=== PATIENT | female | born 1990 | race Caucasian/White ===

== ENCOUNTER 2018-09-17 15:08 | Observation (INO) ==
[2018-09-17] MEDS ORDERED: NS 1000 ML 1,000 ML ONE (15:15)
[2018-09-17] MEDS ORDERED: ZOFRAN INJ 4 MG VIAL ONE (15:15)
--- NOTE | 2018-09-17 15:21 | ED.ABDFE ---
HPI Time Seen Time Seen by Provider: 09/17/18 15:13 PCP Primary Care Physician: VERONICA MILNER Complaint Doctors Chief Complaint Comments: A 27 y/o female with onset of Rt. flank pain about 1 hr. DIRECTOR OF LEADERSHIP DEVELOPMENT. She describes this as a sharp and constant pain. She has associated nausea + vomiting. She denies dysuria or hematuria. She had a pre- visit with OB provider earlier today and everything was okay at the time. She is 20 weeks EGA. Chief Complaint:: PT C/O ABOUT AN HOUR AGO SHE WAS IN THE KITCHEN AND PT C/O HAVING SHARP PAINS TO HER RIGHT SIDE AREA, PT IS 20 WEEK , PT DENIES ANY BLEEDING OR DISCHARGE ,BR Source History Provided: Patient Mode of arrival Mode of Arrival: Ambulatory Timing Onset of Chief Complaint: 09/17/18 PMH PMH Past Medical History: No Past Surgical History: Yes Surgical History: Ortho Surgery and Tonsillectomy Family History History of Family Medical Conditions: No Social History Does patient currently use any type of tobacco product: No Have you used tobacco products in the last 12 months: No Type of Tobacco Use: None Does any household member use tobacco: No Alcohol Use: None Do you use any recreational Drugs:: No Lives With: Family Lives Where: Home infectious screening In the last 2 months have you had wt loss of >10#?: NO Have you had fever, night sweats or hemotysis?: No Have you traveled outside the country in the last 6 months?: No Isolation: Standard ROS Review of Systems Constitutional: No Symptoms Reported Eyes: No Symptoms Reported ENTM: No Symptoms Reported Respiratoy: No Symptoms Reported Cardiovascular: No Symptoms Reported Gastrointestinal/Abdominal: Abdominal Pain (Rt. flank), Nausea and Vomiting Genitourinary: No Symptoms Reported Neurological: No Symptoms Reported Musculoskeletal: No Symptoms Reported Integumentary: No Symptoms Reported Hematologic/Lymphatic: No Symptoms Reported Endocrine: No Symptoms Reported Psychiatric: No Symptoms Reported PE Vital Signs Vitals: Temperature 97.0 F Pulse Rate 57 Respiratory Rate 20 Blood Pressure 129/77 O2 Sat by Pulse Oximetry 97 General Limitations: No Limitations General Appearance: Alert and In Distress (pain related) Head Head Exam: Normal Inspection, Atraumatic and Normocephalic Eyes Eye exam: Normal Appearance and EOMI ENT ENT Exam: Normal Oropharynx and Mucous Membranes Moist Neck Neck Exam: Normal Inspection, Full ROM and Trachea Midline Chest Chest Inspection: Normal Inspection and Symmetric Chest Wall Rise Respiratory Respiratory Exam: Normal Lung Sounds Bilat Cardiovascular Cardiovascular Exam: Regular Rate, Normal Rhythm, +S1 and +S2 Abdominal Exam Abdominal Exam: Normal Inspection, Normal Bowel Sounds and Soft Abdominal Tenderness: negative RUQ, RLQ, LUQ, LLQ, Epigastrium, Suprapubic, Diffuse, Mild, Moderate and Severe Rectal Rectal Exam: Deferred Back Back Exam: Normal Inspection; negative Full ROM, Tenderness, (R) CVA Tenderness, (L) CVA Tenderness, Muscle Spasm, Paraspinal Tenderness, Vertebral Tenderness, Rashes, (R) Sciatic Notch Tenderness, (L) Sciatic Notch Tendern, (R) Straight Leg Raise and (L) Straight Leg Raise Extremeties Extremities Exam: Normal Inspection External Exam: Female: Deferred Neurologic Neurological Exam: Alert and Oriented X3 Psychiatric Psychiatric Exam: Normal Affect and Normal Mood Skin Skin Exam: Warm, Dry and Normal Color ROR Labs Reviewed Result Diagrams: 09/17/18 15:21 09/17/18 15:21 Laboratory: WBC 17.4 X10^3/uL (3.6-10.0) H 09/17/18 15:21 RBC 3.97 X10^6/uL (3.5-5.4) 09/17/18 15:21 Hgb 12.7 g/dL (12.0-16.0) 09/17/18 15:21 Hct 36.2 % (36.0-47.0) 09/17/18 15:21 MCV 91.2 fL (80.0-100.0) 09/17/18 15:21 MCH 31.9 pg (27.0-34.0) 09/17/18 15:21 MCHC 35.0 g/dL (33.0-35.0) 09/17/18 15:21 RDW 13.9 % (11.6-16.5) 09/17/18 15:21 Plt Count 306 X10^3/uL (150.0-450.0) 09/17/18 15:21 MPV 8.6 fL (7.4-11.0) 09/17/18 15:21 Neut % (Auto) 79.6 % (42.0-75.0) H 09/17/18 15:21 Lymph % (Auto) 13.0 % (21.0-51.0) L 09/17/18 15:21 [place] % (Auto) 5.7 % (0.0-13.0) 09/17/18 15:21 Eos % (Auto) 1.1 % (0.9-2.9) 09/17/18 15:21 Baso % (Auto) 0.6 % (0.2-1.0) 09/17/18 15:21 Neut # (Auto) 13.9 x10^3/uL (2.2-4.8) H 09/17/18 15:21 Lymph # (Auto) 2.3 X10^3/uL (1.3-2.9) 09/17/18 15:21 [place] # (Auto) 1.0 x10^3/uL (0.3-0.8) H 09/17/18 15:21 Eos # (Auto) 0.2 x10^3/uL (0.0-0.2) 09/17/18 15:21 Baso # (Auto) 0.1 X10^3/uL (0.0-0.1) 09/17/18 15:21 Absolute Nucleated RBC 0.0 /100WBC 09/17/18 15:21 Sodium 138 mmol/L (136-145) 09/17/18 15:21 Corrected Sodium TNP 09/17/18 15:21 Potassium 4.1 mmol/L (3.5-5.1) 09/17/18 15:21 Chloride 103 mmol/L (98-107) 09/17/18 15:21 Carbon Dioxide 22.2 mmol/L (21-32) 09/17/18 15:21 BUN 14 mg/dL (7-18) 09/17/18 15:21 Creatinine 0.84 mg/dL (0.55-1.02) 09/17/18 15:21 Est GFR (MDRD) Af Amer > 60 (>60) 09/17/18 15:21 Est GFR (MDRD) Non-Af > 60 (>60) 09/17/18 15:21 Glucose 88 mg/dL (65-99) 09/17/18 15:21 Calcium 9.0 mg/dL (8.5-10.1) 09/17/18 15:21 Corrected Calcium 9.6 mg/dL (8.5-10.1) 09/17/18 15:21 Total Bilirubin 0.20 mg/dL (0.2-1.0) 09/17/18 15:21 AST 22 Units/L (15-37) 09/17/18 15:21 ALT 23 Units/L (12-78) 09/17/18 15:21 Alkaline Phosphatase 70 Units/L (46-116) 09/17/18 15:21 Total Protein 7.4 g/dL (6.4-8.2) 09/17/18 15:21 Albumin 3.3 g/dL (3.4-5.0) L 09/17/18 15:21 Globulin 4.1 g/dL (2.5-4.5) 09/17/18 15:21 Albumin/Globulin Ratio 0.8 Ratio (1.1-2.1) L 09/17/18 15:21 Diagnosis Discharge Problem: Cholelithiasis affecting in second trimester, antepartum, Intrauterine Leukocytosis (leucocytosis) Qualifiers: Leukocytosis type: unspecified Qualified Code(s): D72.829 - Elevated white blood cell count, unspecified
[2018-09-17] MEDS ORDERED: NUBAIN INJ 10 ONE (15:24)
[2018-09-17] MEDS ORDERED: NS 1000 ML 1,000 ML IV ONE (15:30)
[2018-09-17] MEDS ORDERED: NUBAIN INJ 10 IVP ONE (15:30)
[2018-09-17 15:45] LABS: BASOPHILS # (AUTO) 0.1 X10^3/uL (0.0-0.1); BASOPHILS % (AUTO) 0.6 % (0.2-1.0); EOSINOPHILS # (AUTO) 0.2 x10^3/uL (0.0-0.2); EOSINOPHILS % (AUTO) 1.1 % (0.9-2.9); HEMATOCRIT 36.2 % (36.0-47.0); HEMOGLOBIN 12.7 g/dL (12.0-16.0); LYMPHOCYTES # (AUTO) 2.3 X10^3/uL (1.3-2.9); MEAN CORPUSCULAR HEMOGLOBIN 31.9 pg (27.0-34.0); MEAN CORPUSCULAR VOLUME 91.2 fL (80.0-100.0); MEAN PLATELET VOLUME 8.6 fL (7.4-11.0); MONOCYTES % (AUTO) 5.7 % (0.0-13.0); NEUTROPHILS # (AUTO) 13.9 x10^3/uL (2.2-4.8); NEUTROPHILS % (AUTO) 79.6 % (42.0-75.0); PLATELET COUNT 306 X10^3/uL (150.0-450.0); RED BLOOD COUNT 3.97 X10^6/uL (3.5-5.4); RED CELL DISTRIBUTION WIDTH 13.9 % (11.6-16.5); WHITE BLOOD COUNT 17.4 X10^3/uL (3.6-10.0)
[2018-09-17 15:55] LABS: ALANINE AMINOTRANSFERASE 23 Units/L (12-78); ALBUMIN 3.3 g/dL (3.4-5.0); ALKALINE PHOSPHATASE 70 Units/L (46-116); ASPARTATE AMINO TRANSFERASE 22 Units/L (15-37); BLOOD UREA NITROGEN 14 mg/dL (7-18); CARBON DIOXIDE 22.2 mmol/L (21-32); CHLORIDE 103 mmol/L (98-107); COR CA(FOR HYPOALB) 9.6 mg/dL (8.5-10.1); CREATININE 0.84 mg/dL (0.55-1.02); SODIUM 138 mmol/L (136-145); TOTAL PROTEIN 7.4 g/dL (6.4-8.2); eGFR NON BLACK RACES > 60 (>60)
[2018-09-17] MEDS ORDERED: DEMEROL INJ ONE (16:20)
[2018-09-17] MEDS ORDERED: PHENERGAN INJ 25 MG IM ONE ×2 (16:20→16:28)
[2018-09-17] MEDS ORDERED: DEMEROL INJ IVP ONE (16:26)
[2018-09-17] MEDS ORDERED: ANCEF VIAL 1 GRAM IM ONE (17:27)
[2018-09-17] MEDS ORDERED: ANCEF VIAL 1 GRAM IVP ONE (17:43)
[2018-09-17] MEDS ORDERED: ANCEF VIAL 1 GRAM ONE (17:46)
[2018-09-17] MEDS ORDERED: DEMEROL INJ IVP PRN (17:47)
[2018-09-17] MEDS ORDERED: PHENERGAN INJ 25 MG IM PRN (18:38)
[2018-09-17 18:59] LABS: BILIRUBIN,URINE NEGATIVE (NEGATIVE); BLOOD/HEMOGLOBIN,URINE 2+ (NEGATIVE); GLUCOSE, URINE NEGATIVE (NEGATIVE); KETONES,URINE 4+ (NEGATIVE); LEUKOCYTE ESTERASE ,URINE 1+ (NEGATIVE); NITRITES,URINE NEGATIVE (NEGATIVE); PROTEIN,URINE 2+ (NEGATIVE); UROBILINOGEN,URINE NORMAL (NORMAL)
[2018-09-17 19:07] LABS: APPEARANCE,URINE SLIGHTLY HAZY (CLEAR); COLOR,URINE YELLOW (YELLOW)
[2018-09-17 19:08] LABS: BACTERIA,URINE TRACE /HPF (NEGATIVE); MUCUS,URINE MODERATE /HPF (NEGATIVE); SQUAMOUS EPITHELIAL CELL,UR MANY /HPF (NEGATIVE)
--- NOTE | 2018-09-17 19:11 | US ---
History: Pain Exam: Complete abdominal ultrasound Comparison: None Technique: Multiple grayscale and color flow Doppler images of the abdomen was obtained. Findings: The liver is normal size and echogenicity. There is hepatopetal flow in the portal vein and visualized hepatic veins and IVC are unremarkable. The gallbladder is normal size. There is a large mobile echogenic focus in the gallbladder which is shadowing posteriorly . There is no wall thickening or pericholecystic fluid . There was pain upon compression of the gallbladder . The common duct measures 2 mm. The right kidney measures 10 cm in length with mild hydronephrosis . The left kidney measures 9 cm in length and is normal in echogenicity. The spleen measures 11 cm in length and is normal in echogenicity. The visualized aorta and pancreas unremarkable. There is a gravid uterus with a 19 week 5 day and cardiac activity documented 123 beats per minute . The placenta is good position posteriorly. IMPRESSION: Single large gallstone with no wall thickening or pericholecystic fluid. There was pain upon compression of the gallbladder which is of uncertain clinical significance. Recommend follow-up. Normal liver, common bile duct, and pancreas. Mild hydronephrosis right kidney. Incidental single viable intrauterine with an estimated gestational age of 19 weeks 5 days. Reported By:
--- NOTE | 2018-09-17 19:13 | US ---
History: Nausea vomiting Exam: Limited OB ultrasound Comparison: None Technique: Multiple grayscale and color flow Doppler images of the pelvis were obtained. Findings: There is a single intrauterine in the breech presentation. The estimated gestational age of 20 weeks 3 days. Cardiac activity was documented at 171 beats per minute. The placenta is seen posteriorly located and is normal in echogenicity . visualized amniotic fluid volume is grossly unremarkable . The visualized anatomy is grossly unremarkable. IMPRESSION: Single viable intrauterine in the breech presentation with an estimated gestational age of 20 weeks 3 days. Reported By:
[2018-09-17] MEDS: NS 1000 ML 1,000 ML IV SCH (19:24)
[2018-09-17 19:46] VITALS: BMI 28.9
[2018-09-17] MEDS: ANCEF VIAL 1 GRAM IVP SCH (21:08)
[2018-09-17] MEDS: ZANTAC INJ 50 MG in NS 50 ML IV 50 ML IV SCH (22:17)
[2018-09-18] MEDS: ANCEF VIAL 1 GRAM IVP SCH ×2 (05:22→14:09)
[2018-09-18] MEDS: NS 1000 ML 1,000 ML IV SCH ×2 (05:22→12:49)
[2018-09-18] MEDS: ZANTAC INJ 50 MG in NS 50 ML IV 50 ML IV SCH ×2 (05:22→14:10)
[2018-09-18 06:30] LABS: BASOPHILS % (AUTO) 0.3 % (0.2-1.0); EOSINOPHILS % (AUTO) 0.3 % (0.9-2.9); HEMATOCRIT 30.1 % (36.0-47.0); HEMOGLOBIN 10.2 g/dL (12.0-16.0); LYMPHOCYTES # (AUTO) 1.6 X10^3/uL (1.3-2.9); LYMPHOCYTES % (AUTO) 12.3 % (21.0-51.0); MEAN CORPUSCULAR HEMOGLOBIN 31.4 pg (27.0-34.0); MEAN CORPUSCULAR HGB CONC 33.9 g/dL (33.0-35.0); MEAN CORPUSCULAR VOLUME 92.7 fL (80.0-100.0); MEAN PLATELET VOLUME 8.5 fL (7.4-11.0); MONOCYTES # (AUTO) 0.8 x10^3/uL (0.3-0.8); NEUTROPHILS # (AUTO) 10.9 x10^3/uL (2.2-4.8); NEUTROPHILS % (AUTO) 81.1 % (42.0-75.0); PLATELET COUNT 231 X10^3/uL (150.0-450.0); RED BLOOD COUNT 3.24 X10^6/uL (3.5-5.4); RED CELL DISTRIBUTION WIDTH 13.8 % (11.6-16.5); WHITE BLOOD COUNT 13.4 X10^3/uL (3.6-10.0)
[2018-09-18 07:03] LABS: BAND NEUTROPHILS % 3 % (0-10); PLATELET MORPHOLOGY COMMENT NORMAL (NORMAL)
--- NOTE | 2018-09-18 11:12 | DR.PROGNOT ---
Hospital Progress Notes - Progress Note for Day of: Progress Note Date: 09/18/18 - Chief Complaint Chief Complaint: no abdominal pain this morning , no nausea or vomiting . WBC is 13.4 and LFT are normal . afebrile . - Past Medical Family Social History Past Med/Fam/Surg Hx: No changes since H&P Allergies: Allergies No Known Drug Allergies Allergy (Verified 09/17/18 15:14) - Review Of Systems ROS: No change since H&P - Vital Signs Vital Signs: Temperature 98.5 F Pulse Rate [Right] 76 Pulse Rate 57 Respiratory Rate 18 Blood Pressure [Right Arm] 92/53 Blood Pressure 129/77 O2 Sat by Pulse Oximetry 98 - Physical Exam Oriented: Normal Eyes: Normal Ear: Normal Nose: Normal Throat: Normal Respiratory: Normal Cardiovascular: Normal : Normal GI:Auscultation: Normal GI:Palpation: Normal GI: Tenderness: RUQ (only mild RUQ tenderness , no rebound , BS+) Speech Pattern: Clear, Appropriate - Laboratory and Diagnostics Result Diagrams: 09/18/18 06:00 09/17/18 15:21 Labs: Laboratory WBC 13.4 X10^3/uL (3.6-10.0) H 09/18/18 06:00 RBC 3.24 X10^6/uL (3.5-5.4) L 09/18/18 06:00 Hgb 10.2 g/dL (12.0-16.0) L D 09/18/18 06:00 Hct 30.1 % (36.0-47.0) L 09/18/18 06:00 MCV 92.7 fL (80.0-100.0) 09/18/18 06:00 MCH 31.4 pg (27.0-34.0) 09/18/18 06:00 MCHC 33.9 g/dL (33.0-35.0) 09/18/18 06:00 RDW 13.8 % (11.6-16.5) 09/18/18 06:00 Plt Count 231 X10^3/uL (150.0-450.0) 09/18/18 06:00 Plt Count Comment Adequate (ADEQUATE) 09/18/18 06:00 MPV 8.5 fL (7.4-11.0) 09/18/18 06:00 Neut % (Auto) 81.1 % (42.0-75.0) H 09/18/18 06:00 Lymph % (Auto) 12.3 % (21.0-51.0) L 09/18/18 06:00 [place] % (Auto) 6.0 % (0.0-13.0) 09/18/18 06:00 Eos % (Auto) 0.3 % (0.9-2.9) L 09/18/18 06:00 Baso % (Auto) 0.3 % (0.2-1.0) 09/18/18 06:00 Neut # (Auto) 10.9 x10^3/uL (2.2-4.8) H 09/18/18 06:00 Lymph # (Auto) 1.6 X10^3/uL (1.3-2.9) 09/18/18 06:00 [place] # (Auto) 0.8 x10^3/uL (0.3-0.8) 09/18/18 06:00 Eos # (Auto) 0.0 x10^3/uL (0.0-0.2) 09/18/18 06:00 Baso # (Auto) 0.0 X10^3/uL (0.0-0.1) 09/18/18 06:00 Absolute Nucleated RBC 0.0 /100WBC 09/18/18 06:00 Total Counted 100 09/18/18 06:00 Neutrophils % (Manual) 75 % (39-76) 09/18/18 06:00 Band Neutrophils % 3 % (0-10) 09/18/18 06:00 Lymphocytes % (Manual) 16 % (13-43) 09/18/18 06:00 Monocytes % (Manual) 4 % (4-9) 09/18/18 06:00 Eosinophils % (Manual) 2 % (0-6) 09/18/18 06:00 Plt Morphology Comment Normal (NORMAL) 09/18/18 06:00 RBC Morphology Normal (NORMAL) 09/18/18 06:00 Sodium 138 mmol/L (136-145) 09/17/18 15:21 Corrected Sodium TNP 09/17/18 15:21 Potassium 4.1 mmol/L (3.5-5.1) 09/17/18 15:21 Chloride 103 mmol/L (98-107) 09/17/18 15:21 Carbon Dioxide 22.2 mmol/L (21-32) 09/17/18 15:21 BUN 14 mg/dL (7-18) 09/17/18 15:21 Creatinine 0.84 mg/dL (0.55-1.02) 09/17/18 15:21 Est GFR (MDRD) Af Amer > 60 (>60) 09/17/18 15:21 Est GFR (MDRD) Non-Af > 60 (>60) 09/17/18 15:21 Glucose 88 mg/dL (65-99) 09/17/18 15:21 Calcium 9.0 mg/dL (8.5-10.1) 09/17/18 15:21 Corrected Calcium 9.6 mg/dL (8.5-10.1) 09/17/18 15:21 Total Bilirubin 0.20 mg/dL (0.2-1.0) 09/17/18 15:21 AST 22 Units/L (15-37) 09/17/18 15:21 ALT 23 Units/L (12-78) 09/17/18 15:21 Alkaline Phosphatase 70 Units/L (46-116) 09/17/18 15:21 Total Protein 7.4 g/dL (6.4-8.2) 09/17/18 15:21 Albumin 3.3 g/dL (3.4-5.0) L 09/17/18 15:21 Globulin 4.1 g/dL (2.5-4.5) 09/17/18 15:21 Albumin/Globulin Ratio 0.8 Ratio (1.1-2.1) L 09/17/18 15:21 Specimen Type Clean catch urine 09/17/18 18:53 Urine Color Yellow (YELLOW) 09/17/18 18:53 Urine Appearance Slightly hazy (CLEAR) 09/17/18 18:53 Urine pH 5.0 (5.0 - 8.0) 09/17/18 18:53 Ur Specific [place] 1.025 (1.000-1.030) 09/17/18 18:53 Urine Protein 2+ (NEGATIVE) 09/17/18 18:53 Urine Glucose (UA) Negative (NEGATIVE) 09/17/18 18:53 Urine Ketones 4+ (NEGATIVE) 09/17/18 18:53 Urine Occult Blood 2+ (NEGATIVE) 09/17/18 18:53 Urine Nitrite Negative (NEGATIVE) 09/17/18 18:53 Urine Bilirubin Negative (NEGATIVE) 09/17/18 18:53 Urine Urobilinogen Normal (NORMAL) 09/17/18 18:53 Ur Leukocyte Esterase 1+ (NEGATIVE) 09/17/18 18:53 Urine RBC 5-10 /HPF (NONE SEEN) 09/17/18 18:53 Urine WBC 0-2 /HPF (NONE SEEN) 09/17/18 18:53 Ur Squamous Epith Cells Many /HPF (NEGATIVE) 09/17/18 18:53 Urine Bacteria Trace /HPF (NEGATIVE) 09/17/18 18:53 Urine Mucus Moderate /HPF (NEGATIVE) 09/17/18 18:53 Ur Culture Indicated? No/not indicated 09/17/18 18:53 - Assessment and Plan 1: subsided biliary colic . non complicated (20 weeks ). will start low fat diet this am and recheck this pm . if still asymptomatic will D/C and follow as OP . - Problem Patient Problems: Patient Problems Cholelithiasis affecting in second trimester, antepartum (Acute) O26.612, K80.20 Leukocytosis (leucocytosis) (Acute) D72.829 Intrauterine (Acute) Z34.90
[2018-09-18 12:48] VITALS: BP 94/51
== END 2018-09-18 14:10 | disposition home or self-care (01) ==
LOC: MED/SURG 15:08 → ER 15:08 → MED/SURG 18:32
PROVIDERS: ADMIT Specialist; ATTEND Specialist
DX: Z87.442 Personal history of urinary calculi; O99.612 Diseases of the digestive system complicating pregnancy, second trimester; K80.20 Calculus of gallbladder without cholecystitis without obstruction; D72.828 Other elevated white blood cell count; N13.30 Unspecified hydronephrosis; R10.31 Right lower quadrant pain; O99.89 Other specified diseases and conditions complicating pregnancy, childbirth and the puerperium; R11.2 Nausea with vomiting, unspecified; Z3A.20 20 weeks gestation of pregnancy
CPT/HCPCS: 36415; 76700; 76815; 80053; 81001; 85025; 96365; 96367; 96372; 96374; 96375; 99284; A4222; G0378; J0690; J2175; J2300; J2405; J2550; J2780; J7030; J7050

== ENCOUNTER 2019-01-22 06:08 | Inpatient (IN) ==
[2019-01-22] MEDS ORDERED: D5LR 1L W PITOCIN 10 UNITS/L 10 UNITS/1,000 ML BAG IV ONE (06:27)
[2019-01-22] MEDS ORDERED: D5 1/2 NS 1000 ML 1,000 ML ONE (06:27)
[2019-01-22] MEDS ORDERED: PITOCIN IVP ONE (07:09)
[2019-01-22] MEDS ORDERED: PHENERGAN INJ 25 MG IM PRN ×2 (07:09→16:07)
[2019-01-22] MEDS ORDERED: REGLAN INJ 10 MG VIAL IVP PRN (07:09)
[2019-01-22] MEDS ORDERED: D5 1/2 NS 1000 ML 1,000 ML IV SCH (07:09)
[2019-01-22] MEDS ORDERED: D5LR 1L W PITOCIN 10 UNITS/L 10 UNITS/1,000 ML BAG IV PRN (07:09)
[2019-01-22] MEDS ORDERED: MORPHINE SULFATE INJ 2 MG INJ IVP PRN (07:09)
[2019-01-22] MEDS ORDERED: NUBAIN INJ 200 MG VIAL MULTIDOSE IVP PRN (07:09)
--- NOTE | 2019-01-22 07:30 | DR.OB ---
OB Quick Note - Assessment/Plan Assessment/Plan: L&D 01/22/19 at 7:00am S-No complaint. O-Afebrile,VSS YPU=545 with good LTV, +accel, no decel. CTX=none CVX=2cm/50%/-1/VTX AROM with clear fluid. IUPC and FSE placed. A-IUP at 38 6/7 weeks for induction P-Begin pitocin induction Anticipate
[2019-01-22] MEDS ORDERED: LR 1000 ML IV 1,000 ML ONE (09:12)
[2019-01-22] MEDS ORDERED: FENTANYL INJ 100 mcg ONE (09:12)
[2019-01-22] MEDS ORDERED: NAROPIN EPIDURAL 0.2% + FENTANYL 90MCG 60 ML EPI ONE (09:13)
[2019-01-22] MEDS ORDERED: PITOCIN ONE (09:13)
--- NOTE | 2019-01-22 11:44 | DR.OB ---
OB Quick Note - Assessment/Plan Assessment/Plan: L&D 01/22/19 at 11:40am Pitocin=12mu/min. S-No complaint. s/p epidural. O-Afebrile,VSS EBA=179 with good LTV, +accel, no decel. CTX=q 1 1/2 to 2 min., about 45-55mmHg CVX=3-4cm/90%/0 A-IUP at 38 6/7 weeks for induction P-Cont. pitocin induction Anticipate
[2019-01-22] MEDS ORDERED: D5 1/2 NS 1L W PITOCIN 20 UNITS/L 20 UNITS/1,000 ML BAG IV ONE (15:49)
[2019-01-22] MEDS ORDERED: XYLOCAINE 1 % (PLAIN) ONE (15:55)
[2019-01-22] MEDS ORDERED: ADACEL or BOOSTRIX TDaP VACCINE IM ONE (16:46)
[2019-01-22] MEDS ORDERED: MILK OF MAGNESIA PO PRN (16:46)
[2019-01-22] MEDS ORDERED: DERMOPLAST SPRAY TOP PRN (16:46)
[2019-01-22] MEDS ORDERED: AMBIEN PO PRN (16:46)
[2019-01-22] MEDS: D5 1/2 NS 1000 ML 1,000 ML with PITOCIN 20 UNITS IV SCH ×2 (16:50)
--- NOTE | 2019-01-22 16:55 | DR.OB ---
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 Head delivered over intact perineum. Nose and mouth bulb suctioned. Late meconium noted. Body delivered over intact perineum. Cord clamped x 2 and cut. handed to attendant. Cord sent for gases. Placenta delivered spontaneously / intact / 3 vessel cord. No CVX tears. A small second degree midline tear noted and repaired with 0-vicryl in usual fashion. Viable male infant, VTX/OA, wt=7'2" and 9/9, stable to NBN. Mother stable to RR. DMV=768kf.
[2019-01-22] MEDS: MOTRIN TAB 800 MG PO PRN (17:15)
[2019-01-22] MEDS: ZANTAC PO SCH (20:11)
[2019-01-23] MEDS: D5 1/2 NS 1000 ML 1,000 ML with PITOCIN 20 UNITS IV SCH ×2 (01:21)
[2019-01-23] MEDS: MOTRIN TAB 800 MG PO PRN ×2 (01:22→09:13)
[2019-01-23 05:21] LABS: HEMATOCRIT 27.3 % (36.0-47.0)
[2019-01-23 05:27] LABS: HEMOGLOBIN 9.4 g/dL (12.0-16.0)
[2019-01-23] MEDS ORDERED: PRENATAL PLUS PO SCH (09:00)
[2019-01-23] MEDS: ZANTAC PO SCH (09:12)
[2019-01-23 12:40] VITALS: BP 106/67
== END 2019-01-23 18:10 | disposition home or self-care (01) | DRG 807 ==
LOC: LD 06:08 → MED/SURG 16:44
PROVIDERS: ADMIT Specialist; ATTEND Specialist
DX: O99.89 Other specified diseases and conditions complicating pregnancy, childbirth and the puerperium; Z3A.38 38 weeks gestation of pregnancy; Z37.0 Single live birth; H54.8 Legal blindness, as defined in USA; O70.1 Second degree perineal laceration during delivery; Z23 Encounter for immunization
CPT/HCPCS: 36415; 59409; 85014; 85018; 88307; 90715; A4216; A4222; S0197; J2590; J3010; J7120; S5010

== ENCOUNTER 2022-03-12 10:08 | Observation (INO) ==
[2022-03-12] MEDS ORDERED: TESSALON PERLES PO PRN (11:12)
[2022-03-12] MEDS ORDERED: ZOFRAN INJ 4 MG VIAL IVP PRN (11:14)
[2022-03-12] MEDS ORDERED: ZITHROMAX INJ 500 MG VIAL IV ONE (11:27)
[2022-03-12 11:35] VITALS: BMI 34.5
[2022-03-12] MEDS: ZITHROMAX INJ 500 MG VIAL 500 MG in NS 250 ML IV 250 ML IV SCH (11:36)
[2022-03-12] MEDS: PROTONIX INJ 40 MG VIAL IVP SCH (11:36)
[2022-03-12] MEDS: SOLU-Medrol 125 MG VIAL IVP SCH ×3 (11:36→21:19)
[2022-03-12 12:02] LABS: APPEARANCE,URINE SLIGHTLY HAZY (CLEAR); BILIRUBIN,URINE NEGATIVE (NEGATIVE); BLOOD/HEMOGLOBIN,URINE 4+ (NEGATIVE); COLOR,URINE STRAW (YELLOW); GLUCOSE, URINE NEGATIVE (NEGATIVE); KETONES,URINE NEGATIVE (NEGATIVE); LEUKOCYTE ESTERASE ,URINE 1+ (NEGATIVE); NITRITES,URINE NEGATIVE (NEGATIVE); PROTEIN,URINE 2+ (NEGATIVE); UROBILINOGEN,URINE NORMAL (NORMAL)
[2022-03-12 12:11] LABS: BACTERIA,URINE TRACE /HPF (NEGATIVE); SQUAMOUS EPITHELIAL CELL,UR FEW /HPF (NEGATIVE)
[2022-03-12 12:24] LABS: BASOPHILS % (AUTO) 0.7 % (0.2-1.0); EOSINOPHILS # (AUTO) 0.1 x10^3/uL (0.0-0.2); EOSINOPHILS % (AUTO) 1.6 % (0.9-2.9); HEMATOCRIT 43.9 % (36.0-47.0); HEMOGLOBIN 15.2 g/dL (12.0-16.0); LYMPHOCYTES # (AUTO) 1.1 X10^3/uL (1.3-2.9); LYMPHOCYTES % (AUTO) 19.9 % (21.0-51.0); MEAN CORPUSCULAR HEMOGLOBIN 30.9 pg (27.0-34.0); MEAN CORPUSCULAR HGB CONC 34.7 g/dL (33.0-35.0); MEAN CORPUSCULAR VOLUME 89.2 fL (80.0-100.0); MEAN PLATELET VOLUME 9.3 fL (7.4-11.0); MONOCYTES # (AUTO) 0.7 x10^3/uL (0.3-0.8); MONOCYTES % (AUTO) 11.7 % (0.0-13.0); NEUTROPHILS # (AUTO) 3.8 x10^3/uL (2.2-4.8); NEUTROPHILS % (AUTO) 66.1 % (42.0-75.0); RED BLOOD COUNT 4.92 X10^6/uL (3.5-5.4); RED CELL DISTRIBUTION WIDTH 13.4 % (11.6-16.5); WHITE BLOOD COUNT 5.8 X10^3/uL (3.6-10.0)
--- NOTE | 2022-03-12 12:30 | RAD ---
HISTORYLMP: NOW BRONCHITIS ; FEVERSTUDYCHEST, PA/LAT ADULTCOMPARISONnoneFINDINGSThe trachea is midline. The cardiac silhouette is unremarkable. The lungs are clear without focal infiltrate or effusion. The bony thorax is unremarkable.IMPRESSIONNo acute cardiopulmonary disease.Electronically signed by: LJ HERNANDEZ (Mar 12, 2022 12:29:14)
[2022-03-12 12:39] LABS: ALANINE AMINOTRANSFERASE 72 Units/L (12-78); ALBUMIN 3.6 g/dL (3.4-5.0); ALKALINE PHOSPHATASE 57 Units/L (46-116); ASPARTATE AMINO TRANSFERASE 39 Units/L (15-37); BLOOD UREA NITROGEN 10 mg/dL (7-18); CALCIUM 7.9 mg/dL (8.5-10.1); CARBON DIOXIDE 26.6 mmol/L (21-32); CHLORIDE 104 mmol/L (98-107); CREATININE 0.87 mg/dL (0.55-1.02); SODIUM 138 mmol/L (136-145); TOTAL PROTEIN 7.9 g/dL (6.4-8.2); eGFR NON BLACK RACES > 60 (>60)
[2022-03-12] MEDS ORDERED: SALINE 3% 15 ML NEB TX ONE (12:42)
[2022-03-12] MEDS: DUONEB 0.5 MG/3 MG (3 mL) NEB SCH ×3 (12:45→21:10)
[2022-03-12] MEDS ORDERED: SALINE 3% 15 ML NEB TX NEB ONE (12:45)
[2022-03-12] MEDS: ROBITUSSIN DM PO SCH ×3 (13:16→20:45)
[2022-03-12] MEDS: TAMIFLU PO SCH ×2 (13:17→20:45)
[2022-03-12] MEDS: NS 1,000 ML IV 1,000 ML IV SCH (16:22)
--- NOTE | 2022-03-12 16:32 | DR.H&P ---
H&P - History & Physical for Day of: H&P Date: 03/12/22 - Chief Complaint Chief Complaint: fever, cough, n/v/d - History of Present Illness History of Present Illness: PT IS 33 WF, DIRECT ADMIT FROM DR VALDEZ OFFICE WITH CO FLU POSITIVE FOR FEVER AND PERSISTENT COUGH, N/V/D, CANT KEEP ANYTHING DOWN. PT HAS TAKEN ROCEPHIN AND KENALOG IM INJECTIONS AND PO ZITHROMAX FOR SINUS INFECTION. PT HAD ONSET HIGH FEVER OVER THE WEEKEND. - Past Medical History Past Medical History: Anxiety, Depression Additional Medical History: CHRONIC VISION IMPAIRMENT - Past Surgical History Surgical History: Cholecystectomy, Ortho Surgery, Tonsillectomy - Family History Family Medical History: Diabetes Mellitus, Coronary Artery Disease, Hypertension - Social History Does patient currently use any type of tobacco product: No Have you used tobacco products in the last 12 months: No Type of Tobacco Use: None Does any household member use tobacco: No Alcohol Use: None Drug Use: None - Medications Home Medications: No Known Drug Allergies Allergy (Verified 01/22/19 09:10) CONTINUE taking the following medications buspirone 5 mg tablet 2 tab PO HS 03/12/22 [History] cariprazine 1.5 mg capsule (Vraylar) 1 cap PO QPM 03/12/22 [History] norethindrone 1 mg-ethinyl estradiol 20 mcg (21)-iron 75 mg (7) tablet 1 tab PO QDAY 03/12/22 [History] - Review of Systems Constitutional: Fever, Chills, Sweats, Malaise Eyes: No Symptoms Reported ENT: Nose Congestion, Throat Pain Respiratory: Cough, Pleuritic Pain, Sputum Cardiovascular: No Symptoms Reported Gastrointestinal: Nausea, Vomiting, Diarrhea Genitourinary: No Symptoms Reported Musculoskeletal: No Symptoms Reported Skin: No Symptoms Reported Neurological: No Symptoms Reported - Physical Exam Vital Signs: Temperature 98.3 F Pulse Rate [Left Radial] 102 Respiratory Rate 22 Blood Pressure [Left Arm] 106/70 Blood Pressure [Right Arm] 108/66 Blood Pressure 105/67 O2 Sat by Pulse Oximetry 95 Oriented: Normal Eyes: Other (LEGALLY BLIND) Ear: Normal Nose: Normal Throat: Normal Respiratory: RLL Diminished, LLL Diminished Cardiovascular: Normal : Normal Auscultation: Bowel Sounds: Normal Palpation: Normal Tenderness: Normal Skin: Decreased [place] Musculoskeletal: Normal Psychiatric: Anxiety Affect: Anxious Speech Pattern: Clear, Appropriate - Assessment/Plan (1) Influenza A Status: Acute Plan: ADMIT, FLU PRECAUTIONS, STARTED ON IV ZITHROMAX. IV HYDRATION, RESP THERAPY. SPUTUM AND BLOOD CULTLURE ON ADMISSION. TAMIFLU PO, VERIFY HOME MEDICATION. FEVER AND NAUSEA CONTROL (2) Acute bronchitis Status: Acute - Allergies Allergies/Adverse Reactions: Allergies Allergy/AdvReac Type Severity Reaction Status Date / Time No Known Drug Allergies Allergy Verified 01/22/19 09:10
[2022-03-12] MEDS: ROCEPHIN VIAL 1 GRAM 1 G in NS 100 ML IV 100 ML IV SCH (16:52)
[2022-03-12] MEDS ORDERED: TUSSIONEX PENNKINETIC SUSP PO PRN (18:44)
[2022-03-12] MEDS ORDERED: PULMICORT NEB TX 0.5 MG NEB ONE (19:58)
[2022-03-12] MEDS ORDERED: BUSPAR PO SCH (21:00)
[2022-03-12] MEDS ORDERED: PATIENT'S HOME MEDICATION (Cariprazine [Vraylar] 1.5 mg capsule) PO SCH (21:00)
[2022-03-12] MEDS: PULMICORT NEB TX 0.5 MG NEB SCH (21:10)
[2022-03-13] MEDS: DUONEB 0.5 MG/3 MG (3 mL) NEB SCH ×4 (00:42→13:43)
[2022-03-13] MEDS: SOLU-Medrol 125 MG VIAL IVP SCH (05:39)
[2022-03-13] MEDS: NS 1,000 ML IV 1,000 ML IV SCH ×2 (07:01→07:50)
[2022-03-13] MEDS: ROBITUSSIN DM PO SCH ×2 (08:26→12:03)
[2022-03-13] MEDS: TAMIFLU PO SCH (08:26)
[2022-03-13] MEDS: PROTONIX INJ 40 MG VIAL IVP SCH (08:27)
[2022-03-13] MEDS: ROCEPHIN VIAL 1 GRAM 1 G in NS 100 ML IV 100 ML IV SCH (08:27)
[2022-03-13] MEDS: PULMICORT NEB TX 0.5 MG NEB SCH (08:30)
[2022-03-13] MEDS: ZITHROMAX INJ 500 MG VIAL 500 MG in NS 250 ML IV 250 ML IV SCH (09:14)
[2022-03-13 09:20] LABS: BASOPHILS % (AUTO) 0.1 % (0.2-1.0); HEMATOCRIT 42.1 % (36.0-47.0); HEMOGLOBIN 14.6 g/dL (12.0-16.0); LYMPHOCYTES # (AUTO) 0.7 X10^3/uL (1.3-2.9); MEAN CORPUSCULAR HEMOGLOBIN 30.9 pg (27.0-34.0); MEAN CORPUSCULAR HGB CONC 34.6 g/dL (33.0-35.0); MEAN CORPUSCULAR VOLUME 89.4 fL (80.0-100.0); MONOCYTES # (AUTO) 0.3 x10^3/uL (0.3-0.8); MONOCYTES % (AUTO) 5.5 % (0.0-13.0); NEUTROPHILS # (AUTO) 5.3 x10^3/uL (2.2-4.8); NEUTROPHILS % (AUTO) 83.4 % (42.0-75.0); RED BLOOD COUNT 4.71 X10^6/uL (3.5-5.4); RED CELL DISTRIBUTION WIDTH 13.4 % (11.6-16.5); WHITE BLOOD COUNT 6.4 X10^3/uL (3.6-10.0)
[2022-03-13 09:41] LABS: BLOOD UREA NITROGEN 7 mg/dL (7-18); CARBON DIOXIDE 20.4 mmol/L (21-32); CHLORIDE 106 mmol/L (98-107); COR NA(FOR HYPERGLY) 145 mmol/L (136-145); CREATININE 1.06 mg/dL (0.55-1.02); SODIUM 143 mmol/L (136-145); eGFR NON BLACK RACES > 60 (>60)
[2022-03-13] MEDS ORDERED: MICRO K EXTEN CAP 10 MEQ PO PRN (11:35)
[2022-03-13] MEDS ORDERED: MAGNESIUM SULFATE 1 GRAM/100 mL PREMIX 1 G/100 ML BAG IV PRN (11:35)
[2022-03-13] MEDS ORDERED: K-DUR TAB 20 MEQ PO PRN (11:35)
[2022-03-13] MEDS ORDERED: POTASSIUM CHLORIDE LIQ 20 MEQ UDC PO PRN (11:35)
[2022-03-13] MEDS ORDERED: K-RIDER 10 MEQ/NS 100 ML 10 MEQ/100 ML BAG IV PRN (11:35)
[2022-03-13] MEDS ORDERED: POTASSIUM CHL 60 MEQ/NS 0.45% 500 ML IV PRN (11:35)
[2022-03-13] MEDS ORDERED: KLOR-CON PO PRN (11:35)
[2022-03-13] MEDS ORDERED: POTASSIUM CHL 40 MEQ/NS 0.45% 500 ML IV PRN (11:35)
[2022-03-13 11:38] LABS: ALANINE AMINOTRANSFERASE 57 Units/L (12-78); ALBUMIN 3.4 g/dL (3.4-5.0); ALKALINE PHOSPHATASE 52 Units/L (46-116); ASPARTATE AMINO TRANSFERASE 27 Units/L (15-37); TOTAL PROTEIN 7.7 g/dL (6.4-8.2)
[2022-03-13] MEDS ORDERED: K-DUR TAB 20 MEQ PO ONE (11:58)
[2022-03-13 12:09] VITALS: BP 113/67
== END 2022-03-13 15:50 | disposition home or self-care (01) ==
LOC: MED/SURG
PROVIDERS: ADMIT Internal Medicine; ATTEND Internal Medicine
DX: R11.2 Nausea with vomiting, unspecified; H54.8 Legal blindness, as defined in USA; F41.8 Other specified anxiety disorders; J20.8 Acute bronchitis due to other specified organisms; J10.1 Influenza due to other identified influenza virus with other respiratory manifestations; R50.9 Fever, unspecified; B95.3 Streptococcus pneumoniae as the cause of diseases classified elsewhere; F32.89 Other specified depressive episodes